=== PATIENT | male | born 1985 | race American Indian/Alaskan Native ===

== ENCOUNTER 2019-03-21 15:59 | Emergency (ER) | payer OTHER ==
[2019-03-21 16:48] VITALS: BP 129/88
--- NOTE | 2019-03-21 18:15 | XRay Report ---
PROCEDURE: XR SHOULDER 2+V LT TECHNIQUE: 3 views left shoulder HISTORY: pain/dislocation COMPARISONS: None FINDINGS: Mineralization normal. Alignment normal. Joint space normal. No acute fracture. IMPRESSION: No acute abnormality.. This document is electronically signed by Joseph Grant MD., Mar 21 2019 06:13:30 PM ET
--- NOTE | 2019-03-21 20:24 | Emergency Department Report ---
ED Upper Extremity Inj HPI - General Chief Complaint: Shoulder Injury Stated Complaint: LFT SHOULDER POSS DISLOCATED/PAIN Time Seen by Provider: 03/21/19 20:18 Source: patient Mode of arrival: Ambulatory Limitations: No Limitations - History of Present Illness Initial Comments: 33-year-old male with a history of recurrent left shoulder dislocations 1 year presents to the hospital with complaints of left shoulder pain. Patient states his shoulder frequently and chronically dislocate spontaneously reduces. Afterwards he complains of worsening left shoulder pain. He states a similar episode occur yesterday and now his pain is 8/10 in intensity. He is not taking any current medication. Patient has not followed up with orthopedics due to lack of insurance. Patient presents to the ED today with various paperwork from his job and he is requesting to be filled out to explain his leave of absence. - Related Data Previous Rx's Medication Instructions Recorded Last Taken Type Ibuprofen [Motrin] 600 mg PO Q8H PRN #20 tablet 03/21/19 Unknown Rx Allergies Allergy/AdvReac Type Severity Reaction Status Date / Time No Known Allergies Allergy Verified 03/21/19 16:15 ED Review of Systems ROS: Stated complaint: LFT SHOULDER POSS DISLOCATED/PAIN Other details as noted in HPI Comment: All other systems reviewed and negative ED Past Medical Hx - Past Medical History Previous Medical History?: No - Surgical History Past Surgical History?: No - Social History Smoking Status: Never Smoker Substance Use Type: None - Medications Home Medications: Home Medications Medication Instructions Recorded Confirmed Last Taken Type Ibuprofen [Motrin] 600 mg PO Q8H PRN #20 tablet 03/21/19 Unknown Rx ED Physical Exam - General Limitations: No Limitations - Other Other exam information: General: No limitations, patient is alert in no acute distress Head exam: Atraumatic, normocephalic Eyes exam: Normal appearance ENT: Moist mucous membrane Neck exam: Normal inspection, full range of motion, no meningismus nontender Respiratory exam: Clear to auscultation bilateral, no wheezes, rales, crackles Cardiovascular: Normal rate and rhythm, normal heart sounds Abdomen: Soft, nondistended, and nontender, with normal bowel sounds, no rebound, or guarding Extremity:, Mild tenderness to the left posterior shoulder joint, full range of motion, no deformity Back: Normal Inspection, full range of motion, no tenderness Neurologic: Alert, oriented x3, cranial nerves intact, no motor or sensory deficit Psychiatric: normal affect, normal mood Skin: Warm, dry, intact ED Course Vital Signs 03/21/19 16:47 Temperature 99 F Pulse Rate 93 H Respiratory 20 Rate Blood Pressure 129/88 O2 Sat by Pulse 99 Oximetry ED Medical Decision Making - Radiology Data Radiology results: report reviewed PROCEDURE: XR SHOULDER 2+V LT TECHNIQUE: 3 views left shoulder HISTORY: pain/dislocation COMPARISONS: None FINDINGS: Mineralization normal. Alignment normal. Joint space normal. No acute fracture. IMPRESSION: No acute abnormality.. - Medical Decision Making Patient has chronic left shoulder pain and chronic dislocations with spontaneous reduction. X-ray unremarkable. Patient informed that he needs to follow with a primary care doctor or orthopedic surgeon to have his leave of absence paperwo rk filled out. Patient provided Toradol in the ED. - Differential Diagnosis fracture, contusion, sprain Critical Care Time: No Critical care attestation.: If time is entered above; I have spent that time in minutes in the direct care of this critically ill patient, excluding procedure time. ED Disposition Clinical Impression: Hx of dislocation of shoulder Shoulder sprain Qualifiers: Encounter type: initial encounter Laterality: left Disposition: DC-01 TO HOME OR SELFCARE Is pt being admited?: No Does the pt Need Aspirin: No Condition: Stable Instructions: Shoulder Dislocation (ED) Additional Instructions: Take the medication as prescribed. Follow up with your doctor or the clinic/doctor provided. Return if symptoms worsen as indicated by your discharge instructions Prescriptions: Ibuprofen [Motrin] 600 mg PO Q8H PRN #20 tablet PRN Reason: Pain Referrals: [facility] MD GELA [Primary Care Provider] - 3-5 Days JULIEN SANTIAGO MD [Staff Physician] - 3-5 Days (Orthopedic doctor) Forms: Work/School Release Form(ED) Time of Disposition: 20:44
[2019-03-21] MEDS ORDERED: TORADOL IM ONE (20:39)
== END 2019-03-21 21:45 | disposition home or self-care (01) ==
LOC: ED 15:59
DX: S43.005A Unspecified dislocation of left shoulder joint, initial encounter (principal); X58.XXXA Exposure to other specified factors, initial encounter; Y93.89 Activity, other specified; Y92.89 Other specified places as the place of occurrence of the external cause; Y99.8 Other external cause status